=== PATIENT | male | born 1995 | race Caucasian/White ===

== ENCOUNTER 2017-05-22 15:53 | Emergency (ER) | payer SELFPAY ==
[~2017-05-22] VITALS: Ht 160 cm; Wt 77.1 kg
[2017-05-22 16:28] VITALS: BP 132/77
--- NOTE | 2017-05-22 17:50 | NUR ---
PATIENT LEFT WITHOUT BEING SEEN BY DR. MOISE. NO FURTHER CARE PROVIDED FOR PATIENT.
== END 2017-05-22 17:50 | disposition left against medical advice (07) ==
LOC: MED 15:53
DX: M54.5 Low back pain (principal); Z53.21 Procedure and treatment not carried out due to patient leaving prior to being seen by health care provider